=== PATIENT | female | born 1980 | race Caucasian/White ===

== ENCOUNTER → 2017-08-11 10:49 | Outpatient (CLI) | payer OTHER, SELFPAY ==
[2017-08-11 14:09] LABS: Hematocrit 40.9 % (37-47); Hemoglobin 13.5 g/dl (12.0-15.0); Mean Corpuscular Hgb 28.1 pg (27.0-32.0); Mean Corpuscular Volume 85.2 fL (81-99); Mean Platelet Vol. 12.8 fl (6.2-12.0); Platelet Count 174 K/mm3 (150-450); RBC Distribution Width CV 14.3 % (11.6-14.6); RBC Distribution Width SD 44.7 fl (35.1-43.9); White Blood Count 7.5 K/mm3 (4.4-11.0)
[2017-08-11 14:10] LABS: Scan Indicated on CBC? Y/N NO
[2017-08-11 14:40] LABS: Free T3 2.9 pg/mL (2.18-3.98); Glucose 72 mg/dL (74-106); Prolactin 6.1 ng/mL; T4 Free Direct 0.89 ng/dL (0.76-1.46); Thyroid Stim Hormone (TSH) 1.66 uIU/mL (0.358-3.74)
[2017-08-11 14:54] LABS: Hemoglobin A1c 5.6 % (4.2-6.3)
[2017-08-12 08:54] LABS: Vitamin B12 419 pg/mL (211-911); Vitamin D,25 Hydroxy 20.7 ng/mL (29.95-100.01)
[2017-08-13 13:04] LABS: HPV Reflexed? NOT INDICATED
[2017-08-14 20:08] LABS: Testosterone, % Free 0.91 % (0.50-2.80); Testosterone, Free 0.09 ng/dL (0.10-0.85); Testosterone, Total 10 ng/dL (8-48)
[2017-08-15 12:40] LABS: DHEA Sulfate 138.9 ug/dL (57.3-279.2)
== END ==
PROVIDERS: Visit Provider Obstetrics & Gynecology
DX: R53.82 Chronic fatigue, unspecified (principal); R63.4 Abnormal weight loss; L68.0 Hirsutism; Z12.4 Encounter for screening for malignant neoplasm of cervix
CPT/HCPCS: 36415; 82306; 82607; 82627; 82947; 83001; 83002; 83036; 84146; 84402; 84403; 84439; 84443; 84481; 85027; 88175; 82626; G0145

== ENCOUNTER → 2017-10-20 14:02 | Outpatient (CLI) | payer OTHER, SELFPAY ==
[2017-10-21 09:28] LABS: Vitamin D,25 Hydroxy 55.9 ng/mL (29.95-100.01)
== END ==
PROVIDERS: Visit Provider Obstetrics & Gynecology
DX: E55.9 Vitamin D deficiency, unspecified (principal)
CPT/HCPCS: 36415; 82306

== ENCOUNTER → 2019-04-22 12:15 | Outpatient (CLI) | payer OTHER, SELFPAY ==
[2014-12-19 12:11] VITALS: BMI 36.7
[2019-04-27 15:20] LABS: HPV APTIMA, High Risk Negative (Negative)
== END ==
PROVIDERS: Referring Provider Obstetrics & Gynecology; Visit Provider Obstetrics & Gynecology
DX: Z12.4 Encounter for screening for malignant neoplasm of cervix (principal)
CPT/HCPCS: 87624; 88175; G0145

== ENCOUNTER → 2019-05-23 08:50 | Outpatient (CLI) | payer OTHER, SELFPAY ==
[2019-05-23 11:06] LABS: AST(SGOT) 21 U/L (15-37); Alanine Aminotransfer ALT/SGPT 21 U/L (13-56); Albumin, Serum 3.9 g/dL (3.2-5.0); Alkaline Phosphatase 85 U/L (45-117); Bilirubin, Direct < 0.05 mg/dL (0.00-0.30); Estradiol 145.4 pg/mL; Follicle Stimulating Hormone 4.8 mIU/mL; Globulin 4.1 g/dL (2.2-4.2); Thyroid Stim Hormone (TSH) 2.19 uIU/mL (0.358-3.74)
[2019-05-23 11:13] LABS: Insulin 7.9 mU/L (2.6-37.6); Vitamin B12 610 pg/mL (211-911)
[2019-05-24 12:06] LABS: Vitamin D,25 Hydroxy 21.6 ng/mL (29.95-100.01)
== END ==
PROVIDERS: Visit Provider Obstetrics & Gynecology
DX: L68.0 Hirsutism (principal); N92.1 Excessive and frequent menstruation with irregular cycle; R63.4 Abnormal weight loss; R53.82 Chronic fatigue, unspecified
CPT/HCPCS: 36415; 80076; 82306; 82533; 82607; 82627; 82670; 83001; 83525; 83921; 84270; 84403; 84443; 82626

== ENCOUNTER → 2020-05-25 13:35 | Outpatient (CLI) | payer OTHER, SELFPAY ==
--- NOTE | 2020-05-25 13:43 | BI_ITS ---
MAMMOGRAPHY - BILATERAL SCREENING REASON FOR EXAM: Female, 39 years old. Routine annual screening examination. PERTINENT HISTORY: Non-contributory. TECHNIQUE: Digital bilateral breast akil (3D mammographic acquisition) in the CC and MLO projections. 2-D mediolateral oblique (MLO) and craniocaudad (CC) views of both breasts were obtained. CAD: Full Field Digital Mammography with Computer Added Detection was performed. COMPARISON: None. Baseline examination. FINDINGS: Breast Composition: The breasts are heterogeneously dense, which may obscure small masses. There are no dominant masses or suspicious calcifications. Benign appearing bilateral axillary lymph nodes. No other significant abnormalities are identified. BI/SCREEN MAMM (CAD) W/AKIL BILAT IMPRESSION: Negative screening mammogram. Yearly followup mammogram recommended. (A) ASSESSMENT CATEGORY: Approximately 10% of breast cancers are not detected by mammography. A normal mammogram should not delay biopsy of a clinically suspicious abnormality. [id number] Electronically Signed: Tor Mclaughlin, at 14:56 EST , Service support ,
== END ==
PROVIDERS: Referring Provider Obstetrics & Gynecology; Visit Provider Obstetrics & Gynecology
DX: Z12.31 Encounter for screening mammogram for malignant neoplasm of breast (principal)
CPT/HCPCS: 77063; 77067